=== PATIENT | male | born 1985 | race Two or more races ===

== ENCOUNTER 2021-01-24 15:05 | Outpatient (CLI) | payer OTHER ==
[~2021-01-24 15:05] MED LIST: MEDROLPACK PO; VOLTAREN-XR100 MG PO
== END 2021-01-24 15:07 | disposition home or self-care (01) ==
LOC: PPH VACUNA 15:05
PROVIDERS: ATTEND Emergency Medicine Pediatric Emergency Medicine
DX: Z23 Encounter for immunization (principal)